=== PATIENT | male | born 1965 | race African-American/Black ===

== ENCOUNTER 2016-06-20 08:15 | Emergency (ER) | payer OTHER ==
[2016-06-20 08:24] VITALS: BP 151/90; PULSE 100; TEMP 98.7; BMI 50.1
--- NOTE | 2016-06-20 11:50 | PDOC ---
History of Present Illness - General Chief Complaint: Pain, Acute Stated Complaint: LT LEG, RT KNEE PAIN Time Seen by Provider: 06/20/16 08:41 History Source: Patient Exam Limitations: No Limitations - History of Present Illness Initial Comments: 06/20/16 19:28 51 yr male history of obesity, psoriasis, high cholesterol presents with pain to both knees for one week. Pt states pain behind left knee and to the front of right knee. no trauma no fever . Past History - Past Medical History Allergies/Adverse Reactions: Allergies Allergy/AdvReac Type Severity Reaction Status Date / Time No Known Allergies Allergy Verified 06/20/16 08:24 Home Medications: Ambulatory Orders NK [No Known Home Medication] 06/20/16 HTN: Yes Hypercholesterolemia: Yes Other medical history: obesity - Psycho/Social/Smoking Cessation Hx Suicidal Ideation: No Smoking History: Never smoked Hx Alcohol Use: Yes (OCCASIONALLY) Drug/Substance Use Hx: No Review of Systems - Review of Systems Able to Perform ROS?: Yes Is the patient limited Angolan proficient: No Constitutional: No: Symptoms Reported HEENTM: No: Symptoms Reported Respiratory: No: Symptoms reported Cardiac (ROS): No: Symptoms Reported ABD/GI: No: Symptoms Reported : No: Symptoms Reported Musculoskeletal: Yes: See HPI *Physical Exam - Vital Signs Last Vital Signs Temp Pulse Resp BP Pulse Ox 98.7 F 100 H 151/90 96 06/20/16 08:19 06/20/16 08:19 06/20/16 08:19 06/20/16 08:19 - Physical Exam General Appearance: Yes: Nourished, Appropriately Dressed, Obese HEENT: positive: EOMI, MARY Musculoskeletal: positive: Normal Inspection Extremity: positive: Normal Capillary Refill, Normal Inspection, Other (tender left knee posterior tibial , right knee tender proximal tibia). negative: Calf Tenderness Integumentary: positive: Normal Color, Dry, Warm ED Treatment Course - RADIOLOGY Radiology Studies Ordered: Category Date Time Status KNEE 3 POS-LEFT [RAD] Stat Radiology 06/20/16 08:41 Completed KNEE 3 POS-RIGHT [RAD] Stat Radiology 06/20/16 08:40 Completed DUPLEX VASCUL US-1 LEG [US] Stat Ultrasound 06/20/16 09:35 Completed Medical Decision Making - Medical Decision Making 06/20/16 19:29 cc: knee pain bilaterally behind left knee and front of right knee will xray r/o DVT bakers cyst left knee results discussed with pt all questions asked and answered at discharge. pt understands and agrees with plan. 06/20/16 19:30 *DC/Admit/Observation/Transfer Diagnosis at time of Disposition: Zimmer's cyst of knee Qualifiers: Laterality: left Qualified Code(s): M71.22 - Synovial cyst of popliteal space [ Zimmer], left knee - Discharge Dispostion Disposition: HOME Condition at time of disposition: Good - Referrals Referrals: Juancarlos Cantrell MD [Staff Physician] - - Patient Instructions Printed Discharge Instructions: Bakers Cyst Additional Instructions: warm compresses every 3hrs for 20 minutes behind the left knee take motrin every 6hrs for pain as needed follow with the orthopedist for follow up - Post Discharge Activity Work/School Note: Back to Work
== END 2016-06-20 11:57 | disposition home or self-care (01) ==
LOC: JERFT 08:15
DX: M71.22 Synovial cyst of popliteal space [Baker], left knee (principal); I10 Essential (primary) hypertension; E78.00 Pure hypercholesterolemia, unspecified; E66.01 Morbid (severe) obesity due to excess calories; Z68.43 Body mass index [BMI] 50.0-59.9, adult
CPT/HCPCS: 73562-TC-LT; 73562-TC-RT; 93971-TC; 99281-25

== ENCOUNTER 2019-03-24 20:22 | Emergency (ER) | payer OTHER ==
[2019-03-24 20:39] VITALS: TEMP 98.6; BMI 45.9
--- NOTE | 2019-03-24 22:10 | PDOC ---
History of Present Illness - General Chief Complaint: Pain Stated Complaint: ABD PAIN History Source: Patient Exam Limitations: No Limitations - History of Present Illness Initial Comments: 03/24/19 22:01 Patient is a 53 year old male h/o kindney stone, c/o right flank pain strated at 2pm today assoc with nausea, no vomiting, (+) chills. States he is urinating no blood. Pain is 10/10, feels like someone punching in the right side . No lower abd pain. Had Tylenol at 4pm. Denies fever. NL BM today soft stool. PMD: Dr. Portillo PMHX: as above PSOCHX: neg cig, drug, etoh ALL: NKDA GENERAL/CONSTITUTIONAL: [No fever (+) chills. No weakness. No weight change.] HEAD, EYES, EARS, NOSE AND THROAT: [No change in vision. No ear pain or discharge. No sore throat.] CARDIOVASCULAR: [No chest pain or shortness of breath.] RESPIRATORY: [No cough, wheezing, or hemoptysis.] GASTROINTESTINAL: [(+) nausea, vomiting, diarrhea or constipation. No rectal bleeding.] GENITOURINARY: [No dysuria, frequency, or change in urination.] MUSCULOSKELETAL: [No joint or muscle swelling or pain. No neck or back pain.] SKIN AND BREASTS: [No rash or easy bruising.] NEUROLOGIC: [No headache, vertigo, loss of consciousness, or loss of sensation.] PSYCHIATRIC: [No depression or anxiety.] ENDOCRINE: [No increased thirst. No abnormal weight change.] HEMATOLOGIC/LYMPHATIC: [No anemia, easy bleeding, or history of blood clots.] ALLERGIC/IMMUNOLOGIC: [No hives or skin allergy. No latex allergy.] GENERAL: [The patient is awake, alert, and fully oriented, in moderate painful distress.] HEAD: [Normal with no signs of trauma.] EYES: [Pupils equal, round and reactive to light, extraocular movements intact, sclera anicteric, conjunctiva clear.] ENT: [Ears normal, nares patent, oropharynx clear without exudates. Moist mucous membranes.] NECK: [Normal range of motion, supple without lymphadenopathy, JVD, or masses.] LUNGS: [Breath sounds equal, clear to auscultation bilaterally. No wheezes, and no crackles.] HEART: [Regular rate and rhythm, normal S1 and S2 without murmur, rub.] ABDOMEN: [Soft, (+) tenderness RLQ, (+) RCVAT, normoactive bowel sounds. No guarding, no rebound. No masses.] EXTREMITIES: [Normal range of motion, no edema. No clubbing or cyanosis. No cords, erythema, or tenderness.] NEUROLOGICAL: [Cranial nerves II through XII grossly intact. Normal speech, normal gait.] PSYCH: [Normal mood, normal affect.] SKIN: [Warm, Dry, normal turgor, no rashes or lesions noted.] Past History - Past Medical History Allergies/Adverse Reactions: Allergies Allergy/AdvReac Type Severity Reaction Status Date / Time No Known Allergies Allergy Verified 03/24/19 20:39 Home Medications: Ambulatory Orders Ibuprofen [Motrin -] 600 mg PO QID #28 tablet 03/25/19 Ondansetron HCl [Zofran] 4 mg PO QID #10 tablet 03/25/19 Oxycodone HCl/Acetaminophen [Percocet 5-325 mg Tablet] 1 - 2 tab PO Q4H #20 tablet MDD 6 03/25/19 Tamsulosin HCl [Flomax] 0.4 mg PO DAILY #7 capsule 03/25/19 COPD: No HTN: Yes Hypercholesterolemia: Yes Kidney Stones: Yes - Psycho Social/Smoking Cessation Hx Smoking History: Never smoked Have you smoked in the past 12 months: No Information on smoking cessation initiated: No Hx Alcohol Use: No Drug/Substance Use Hx: No *Physical Exam - Vital Signs Last Vital Signs Temp Pulse Resp BP Pulse Ox 98.6 F 81 17 162/96 100 03/24/19 20:37 03/24/19 20:37 03/24/19 20:37 03/24/19 20:37 03/24/19 20:37 ED Treatment Course - LABORATORY CBC & Chemistry Diagram: 03/24/19 22:20 03/24/19 22:20 Medical Decision Making - Medical Decision Making 03/24/19 22:01 Patient is a 53 year old male h/o kindney stone, c/o right flank pain strated at 2pm today assoc with nausea, no vomiting, (+) chills. States he is urinating no blood. Pain is 10/10, feels like someone punching in the right side . No lower abd pain. Had Tylenol at 4pm. Denies fever. NL BM today soft stool. ddx: Renal colic, tenderness is in the right lower quadrant rule out appendectomy Labs Pain meds, antinausea, IV fluids CT abdomen pelvis Reassess Patient Full Name: JOVON WORLEY Patient Accession No: [id number] Patient : [id number] Reason for Exam: r/o stone, appy Referring Physician: Patient Name: BRUNILDA SIGALA THIS IS A PRELIMINARY REPORT FROM [facility] DATE OF SERVICE: 2019-03-24 23:19:43 IMAGES: 600 EXAM: CT ABDOMEN AND PELVIS WITHOUT CONTRAST CLINICAL HISTORY: 53-year-old male, evaluate for stone, appendicitis COMPARISON: No available comparison. PROCEDURE COMMENTS: CT of the abdomen and pelvis was performed without the administration of IV contrast. Enteric contrast was not administered prior to the examination. Radiation Dose Reduction: This CT exam was performed using one or more of the following dose reduction techniques: automated exposure control, adjustment of the mA and/or kV according to patient size, use of iterative reconstruction technique. Radiation Dose: Based on a 32 cm phantom, the estimated radiation dose CTDIvol mGy for each series in this exam is 16.1 not. The estimated cumulative dose ( DLP mGy-cm) is 994. FINDINGS: Limited evaluation of solid organs and vasculature without IV contrast. Medical Devices: None Lower thorax: 7 mm pulmonary nodules in the left lower lobe and 6 mm pulmonary nodules in the left upper lobe lingula. Liver and biliary tree: Enlarged liver measuring 25 cm longitudinally Gallbladder: Unremarkable Spleen: The spleen measures 16.4 cm, enlarged Pancreas: Normal Adrenal glands: Normal Kidneys and ureters: 5 mm calculus in the right distal ureter approximately 2 cm from the ureterovesicular junction which causes mild right hydroureteronephrosis. There are at least 4 other punctate nonobstructing calculi within the proximal collecting system of the left kidney and 3 punctate nonobstructing calculi within the proximal collecting system of the left kidney. Small bilateral renal cystic structures. Urinary Bladder: Unremarkable Gastrointestinal tract: No bowel wall thickening or evidence of obstruction. Small fecalith within the proximal appendix which is nondilated. No periappendiceal edema. Peritoneal cavity: No free fluid. Reproductive Organs: Unremarkable Vasculature: Limited evaluation of the vasculature without IV contrast. Lymph nodes: No significant lymphadenopathy. Abdominal wall: Small fat-containing umbilical hernia without evidence of strangulation. Musculoskeletal: No acute fracture. Moderate degenerative changes of the lumbar spine. IMPRESSION: Limited evaluation of solid organs and vasculature without IV contrast. 5 mm calculus in the right distal ureter approximately 2 cm from the ureterovesicular junction which causes mild right hydroureteronephrosis. There are at least 4 other punctate nonobstructing calculi within the proximal collecting system of the left kidney and 3 punctate nonobstructing calculi within the proximal collecting system of the left kidney. 7 mm pulmonary nodules in the left lower lobe and 6 mm pulmonary nodules in the left upper lobe lingula. Recommend follow-up according to Fleischner Society recommendations. Hepatosplenomegaly. FLEISCHNER SOCIETY GUIDELINES FOR FOLLOW-UP AND MANAGEMENT OF PULMONARY NODULES: Nodule size < 4 mm In a low-risk patient, no follow-up needed. In a high-risk patient, follow-up CT at 12 months; if unchanged, no further follow-up. Nodule size = 4-6 mm In a low-risk patient, follow-up CT at 12 months; if unchanged, no further follow-up. In a high-risk patient, initial follow-up CT at 6-12 months then at 18-24 months if no change. Nodule size = 6-8 mm In a low-risk patient, initial follow-up CT at 6-12 months then at 18-24 months if no change. In a high-risk patient, initial follow-up CT at 3-6 months then at 9-12 months and 24 months if no change. Nodule size > 8 mm In low-risk and high-risk patients follow-up CT at around 3, 9, and 24 months, dynamic contrast-enhanced CT, PET, and/or biopsy. Low risk patients include individuals with minimal or absent history of smoking and other known risk factors. High risk patients include individuals with a history of smoking or other known risk factors. One or more of the following dose reduction techniques were used: automated exposure control, adjustment of the mA and/or kV according to patient size, use of iterative reconstructive technique. THIS DOCUMENT HAS BEEN ELECTRONICALLY SIGNED Michael Dominguez MD 03/25/2019 00:50 EST M.D. Please call [facility] [phone] ([phone]) with questions. INTERPRETING RADIOLOGIST: Michael Dominguez MD Electronically Signed: Mar 25, 2019 12:51AM EST Patient feels improved after pain. Labs reviewed noted to have a 400 blood sugar count, Patient remains afebrile, there is no white count on the urine to suggest an infectious stone. Will have patient follow-up with urology. Repeated fingerstick now 329 we will continue IV fluids I discussed the physical exam findings, ancillary test results and final diagnoses with the patient. I answered all of the patient's questions. The patient was satisfied with the care received and felt comfortable with the discharge plan and treatment plan. The Patient agrees to follow up with the primary care physician within 24-72 hours. Discharge - Discharge Information Problems reviewed: Yes Clinical Impression/Diagnosis: Renal colic on right side, Hyperglycemia Condition: Stable Disposition: HOME - Additional Discharge Information Prescriptions: Ibuprofen [Motrin -] 600 mg PO QID #28 tablet Ondansetron HCl [Zofran] 4 mg PO QID #10 tablet Oxycodone HCl/Acetaminophen [Percocet 5-325 mg Tablet] 1 - 2 tab PO Q4H #20 tablet MDD 6 Tamsulosin HCl [Flomax] 0.4 mg PO DAILY #7 capsule - Follow up/Referral Referrals: Marcelo Matamoros MD [Staff Physician] - - Patient Discharge Instructions Patient Printed Discharge Instructions: DI for Kidney Stones Additional Instructions: Your Discharge Instructions: You must call primary care physician within 24 hours to arrange follow-up. Return to the Emergency Department with any new, persistent or worsening symptoms, for fever, chills, SOB, dizziness or any other concerning changes that may occur. You must follow-up with urology for further evaluation of your kidney stone. Also noted on your CAT scan was a 7 mm nodule. You need to follow-up with your primary care doctor for further evaluation and referrals. - Post Discharge Activity Work/Back to School Note: Back to Work
[2019-03-24] MEDS ORDERED: morphine CARPU-JECT 4 MG/1 ML DISP.SYRIN IVPUSH ONE (22:21)
[2019-03-24] MEDS ORDERED: KETOROLAC TROMETHAMINE 30 MG/1 ML VIAL IVPUSH ONE (22:21)
[2019-03-24] MEDS ORDERED: SODIUM CHLORIDE 0.9% 500 ML INFUS.BAG IV ONE (22:21)
[2019-03-24] MEDS ORDERED: ONDANSETRON 4 MG/2 ML VIAL IVPUSH ONE (22:23)
[2019-03-24] MEDS ORDERED: KETOROLAC TROMETHAMINE 30 MG/1 ML VIAL ONE (22:27)
[2019-03-24] MEDS ORDERED: ONDANSETRON 4 MG/2 ML VIAL ONE (22:27)
[2019-03-24] MEDS ORDERED: morphine SULFATE 4 MG/ML VIAL ONE (22:27)
[2019-03-24 22:40] LABS: BASO % 1.2 % (0-2.0); EOS % 1.2 % (0-4.5); HEMOGLOBIN 16.3 GM/dL (11.7-16.9); LYMPH % 15.9 % (8-40); MCH 29.2 pg (25.7-33.7); MEAN CELL VOLUME 85.9 fl (80-96); MEAN PLT VOLUME 9.5 fl (7.5-11.1); MONO % 6.6 % (3.8-10.2); NEUT % 75.1 % (42.8-82.8); PLATELET COUNT 219 K/MM3 (134-434); RBC 5.59 M/mm3 (4.00-5.60); RDW 13.6 % (11.9-15.9)
[2019-03-24 22:44] LABS: EPI CELLS 0.8 /HPF (0-5/HPF); HYALINE CASTS 1 /lpf (0-8); URINE APPEARANCE CLEAR; URINE BACTERIA 2.7 /hpf (NEGATIVE); URINE BILIRUBIN NEGATIVE (NEGATIVE); URINE COLOR YELLOW; URINE GLUCOSE (UA) 3+ (NEGATIVE); URINE KETONE NEGATIVE (NEGATIVE); URINE LEUK ESTERASE NEGATIVE (NEGATIVE); URINE NITRITE NEGATIVE (NEGATIVE); URINE PROTEIN NEGATIVE (NEGATIVE); URINE RBC 6 /hpf (0-4); URINE UROBILINOGEN 0.2 mg/dL (0.2-1.0); URINE WBC 3 /hpf (0-5)
[2019-03-24 23:15] LABS: ALBUMIN 4.2 g/dl (3.4-5.0); BILIRUBIN,TOTAL 0.4 mg/dL (0.2-1); BLOOD UREA NITROGEN 20.2 mg/dL (7-18); CALCIUM 10.5 mg/dL (8.5-10.1); CREATININE 1.5 mg/dL (0.55-1.3); POTASSIUM 4.7 mmol/L (3.5-5.1); TOT PROT 8.1 g/dl (6.4-8.2)
[2019-03-25] MEDS ORDERED: SODIUM CHLORIDE 0.9% 500 ML INFUS.BAG IV ONE (01:54)
[2019-03-25 03:16] VITALS: BP 152/89; PULSE 78
== END 2019-03-25 03:10 | disposition home or self-care (01) ==
LOC: JER 20:22
PROC: 3E033NZ Introduction of Analgesics, Hypnotics, Sedatives into Peripheral Vein, Percutaneous Approach (ICD-10-PCS; principal; 2019-03-24)
PROC: 3E0333Z Introduction of Anti-inflammatory into Peripheral Vein, Percutaneous Approach (ICD-10-PCS; 2019-03-24)
PROC: 3E033GC Introduction of Other Therapeutic Substance into Peripheral Vein, Percutaneous Approach (ICD-10-PCS; 2019-03-24)
DX: N13.2 Hydronephrosis with renal and ureteral calculous obstruction (principal); I10 Essential (primary) hypertension; E78.00 Pure hypercholesterolemia, unspecified; Z87.442 Personal history of urinary calculi; R91.8 Other nonspecific abnormal finding of lung field; R16.2 Hepatomegaly with splenomegaly, not elsewhere classified
CPT/HCPCS: 36415; 74176-TC; 80053; 81003; 82962; 83690; 85025; 99283-25